=== PATIENT | female | born 1975 | race Two or more races ===

== ENCOUNTER 2020-06-23 20:56 | Emergency (ER) | payer SELFPAY ==
[~2020-06-23] VITALS: Ht 162.6 cm; Wt 81.2 kg
[2020-06-23 21:38] VITALS: BP 139/71
== END 2020-06-24 02:07 | disposition left against medical advice (07) ==
LOC: ER 21:06
DX: R29.810 Facial weakness (principal); Z53.21 Procedure and treatment not carried out due to patient leaving prior to being seen by health care provider
CPT/HCPCS: 70486